=== PATIENT | female | born 1970 | race Caucasian/White ===

== ENCOUNTER 2024-11-08 10:39 | Emergency (ER) | payer BC, SELFPAY ==
[2024-11-08 10:46] VITALS: BP 158/77; PULSE 70; TEMP 36.8; O2SAT 96; BMI 34.8
--- NOTE | 2024-11-08 11:19 | ED_ITS ---
HPI HPI - General Adult General Chief complaint: Upper Respiratory Infection Stated complaint: SORE THROAT Time Seen by Provider: 11/08/24 10:49 Source: patient Mode of arrival: walk-in Limitations: no limitations History of Present Illness HPI narrative: The patient diagnosed with COVID-19 almost 3 days ago presenting to the ER with sore throat. That she is not able to swallow anything although the patient have no change in her voice no difficulty breathing She tried [id number] medication with no effect Related Data Home Medications ?Medication ?Instructions ?Recorded ?Confirmed albuterol sulfate 90 mcg/actuation 1 puff inhalation Q 6H PRN 11/08/24 11/08/24 aerosol inhaler shortness of breath or wheez ing fluticasone 500 mcg-salmeterol 50 1 inh inhalation Q12 H 11/08/24 11/08/24 mcg/dose blistr powdr for inhalation (Advair Diskus) venlafaxine 37.5 mg 37.5 mg PO DAILY 11/08/24 capsule,extended release 24 hr Previous Rx's ?Medication ?Instructions ?Recorded acetaminophen 650 mg 650 mg PO Q8H PRN fever or p ain 11/08/24 tablet,extended release (Tylenol 8 #20 tabs Hour) prednisone 20 mg tablet 20 mg PO DAILY 3 days #3 tab s 11/08/24 Allergies Allergy/AdvReac Type Severity Reaction Status Date / Time No Known Drug Allergies Allergy Verified 11/08/24 10:48 Opioid HPI Opioid Management Most Recent Opioid Data: Last Pain Scale 9 Today, 10:46 Review of Systems ROS Status of ROS 10 or more systems reviewed and unremark able except as noted in history and below PFSH PFSH Social History Little interest or pleasure in doing things: not at all Feeling down, depressed, or hopeless: not at all Exam Narrative Exam Narrative: Nurses notes and vital signs reviewed and patient is not hypoxic. General: Well-appearing and in no apparent distress. Skin: Warm, dry, no pallor noted. No rash. Head: Normocephalic, atraumatic. Neck: Supple, non-tender. Eye: Pupils are equal, round and EOMI. No scleral icterus. Ears, Nose, Mouth, and Throat: TM are clear, no nasal mucosal hypertrophy. Oral mucosa is moist, there is a bilateral tonsillar erythema but there is no exudate and there is no enlargement of the tonsils and the patient has a patent airway .uvula is mid-line and the voice is clear Cardiovascular: Regular Rate and Rhythm without murmur, gallop or rub. Respiratory: No accessory muscle use or respiratory distress. Lungs are clear to auscultation, no wheezing, rales or rhonchi Chest Wall: no tenderness Back: No midline thoracic or lumbar vertebral tenderness. No CVA tenderness Musculoskeletal: normal ROM, no calf or popliteal tenderness, no lower extremity edema/swelling GI: Abdomen is soft, non-distended. Normal bowel sounds. No masses appreciated. No tenderness to palpation. No rebound, guarding, or rigidity noted. Neurological: A&O x4. No cranial nerve dysfunction observed. No truncal ataxia. Moves all extremities. Sensation intact. Psychiatric: Cooperative and interactive. Normal mood and affect. Constitutional Vital Signs, click to edit/add: Last Vital Signs Temp 98.3 F 11/08/24 10:46 Pulse 70 11/08/24 10:46 Resp 16 11/08/24 10:46 BP 158/77 H 11/08/24 10:46 Pulse Ox 96 11/08/24 10:46 Course Vital Signs Vital signs: Vital Signs Temperature 98.3 F 11/08/24 10:46 Pulse Rate 70 11/08/24 10:46 Respiratory Rate 16 11/08/24 10:46 Blood Pressure 158/77 H 11/08/24 10:46 Pulse Oximetry 96 11/08/24 10:46 Temperature 98.3 F 11/08/24 10:46 Pulse Rate 70 11/08/24 10:46 Respiratory Rate 16 11/08/24 10:46 Blood Pressure 158/77 H 11/08/24 10:46 Pulse Oximetry 96 11/08/24 10:46 Medical Decision Making [facility] Narrative Medical decision making narrative: The patient presentation is mostly secondary to viral pharyngitis The patient had a strep test that was negative Supportive care with Tylenol and prednisone for the next few days The patient is to follow up with primary care physician in next 2-3 days or to return to the emergency department should any of the signs or symptoms worsen or new symptoms develop. The patient agrees with the following Diagnosis and Treatment plan and the patient will be discharged home. Lab Data Labs: Lab Results 11/08/24 Range/Units 10:47 Streptococcus Screen Negative Discharge Plan Discharge Chief Complaint: Upper Respiratory Infection Clinical Impression: COVID-19, Upper respiratory infection Patient Disposition: Home, Self-Care Time of Disposition Decision: 11:19 Prescriptions / Home Meds: New prednisone 20 mg tablet 20 mg PO DAILY 3 Days Qty: 3 0RF acetaminophen [Tylenol 8 Hour] 650 mg tablet extended release 650 mg PO Q8H PRN (Reason: fever or pain) Qty: 20 0RF No Action albuterol sulfate 90 mcg/actuation HFA aerosol inhaler 1 puff INHALATION Q6H PRN (Reason: shortness of breath or wheezing) fluticasone propion-salmeterol [Advair Diskus] 500-50 mcg/dose blister with device 1 inh INHALATION Q12H venlafaxine 37.5 mg capsule,extended release 24hr 37.5 mg PO DAILY Print Language: Upper Sorbian Instructions: Pharyngitis (ED), COVID-19 (Coronavirus Disease 2019) (ED) Referrals: Physician,Non-Staff, MD [Primary Care Provider] - 1 week Discharge Date/Time: 11/08/24 11:33
[2024-11-08] MEDS: lidocaine HCL 15 ML, MAG HYDROX/ALUMINUM HYD/SIMETH 30 ML, HYOSCYAMINE SULFATE 0.25 MG PO (11:30)
== END 2024-11-08 11:33 | disposition home or self-care (01) ==
PROVIDERS: Emergency Provider Emergency Medicine
DX: U07.1 COVID-19 (principal); J06.9 Acute upper respiratory infection, unspecified
CPT/HCPCS: 87070; 87880; 99284